=== PATIENT | female | born 1995 | race Caucasian/White ===

== ENCOUNTER 2017-05-02 21:20 | Emergency (ER) | payer OTHER ==
--- NOTE | 2017-05-02 22:32 | PDOC ---
History of Present Illness - General Chief Complaint: Nausea/Vomiting Stated Complaint: NAUSEA, VOMITING, ACHESS/P WISDOM TEETH EXTRACTION Time Seen by Provider: 05/02/17 21:35 - History of Present Illness Initial Comments: 05/03/17 01:10 The patient is a 21 year old female, who presents to the ED with complaints of nausea, vomiting, and body aches that began this evening. Earlier today, she was feeling queezy and then tried to eat some pizza and lo mein. Four hours later, she began vomiting multiple times. She reports 3-4 episodes of nonbloody/nonbilious emesis with no associated abd pain.The patient recently had her wisdom teeth removed 6 days ago and was sent home with prescription Tylenol #3 and amoxicillin which she has been taking intermittently for the last week with no symptoms until today. She also reports that shes been taking an over the counter cannabis oil supplement for her pain as well. Denies any jaw/tooth pain currently. She reports also getting her flu shot 2 days ago. Last BM yesterday was normal. She denies any fevers, chills, diarrhea, melena, hematemesis, cough, SOB, CP, or urinary symptoms. Past History - Past Medical History Allergies/Adverse Reactions: Allergies Allergy/AdvReac Type Severity Reaction Status Date / Time azithromycin [From Zithromax] Allergy Verified 05/02/17 23:05 Home Medications: Ambulatory Orders Acetaminophen W/ Codeine #3 [Tylenol # 3 -] 1 tab PO Q6H PRN 05/02/17 Amoxicillin - [Amoxicillin 875mg Tablet -] 875 mg PO BID 05/02/17 Ibuprofen 600 mg PO PRN PRN 05/02/17 Ondansetron [Zofran Odt -] 4 mg GT Q8H PRN #8 tab.rapdis 05/03/17 Review of Systems - Review of Systems Comments:: 05/03/17 01:10 GENERAL/CONSTITUTIONAL: Present: chills No fever. No weakness. HEAD, EYES, EARS, NOSE AND THROAT: No change in vision. No ear pain or discharge. No sore throat. GASTROINTESTINAL: Present: nausea, vomiting No diarrhea or constipation. GENITOURINARY: No dysuria, frequency, or change in urination. CARDIOVASCULAR: No chest pain or shortness of breath. RESPIRATORY: No cough, wheezing, or hemoptysis. MUSCULOSKELETAL: No joint or muscle swelling or pain. No neck or back pain. SKIN: No rash NEUROLOGIC: No headache, vertigo, loss of consciousness, or change in strength/ sensation. ENDOCRINE: No increased thirst. No abnormal weight change. HEMATOLOGIC/LYMPHATIC: No anemia, easy bleeding, or history of blood clots. ALLERGIC/IMMUNOLOGIC: No hives or skin allergy. *Physical Exam - Physical Exam Comments: 05/03/17 01:10 GENERAL: Awake, alert, and fully oriented, in no acute distress HEAD: No signs of trauma EYES: PERRLA, EOMI, sclera anicteric, conjunctiva clear ENT: Auricles normal inspection, hearing grossly normal, nares patent, oropharynx clear without exudates. Moist mucosa NECK: Normal ROM, supple, no lymphadenopathy, JVD, or masses LUNGS: Breath sounds equal, clear to auscultation bilaterally. No wheezes, and no crackles HEART: Regular rate and rhythm, normal S1 and S2, no murmurs, rubs or gallops ABDOMEN: Soft, nontender, normoactive bowel sounds. No guarding, no rebound. No masses EXTREMITIES: Normal range of motion, no edema. No clubbing or cyanosis. No cords, erythema, or tenderness BACK: No midline spinal tenderness in cervical/thoracic/lumbar region NEUROLOGICAL: Normal speech, cranial nerves intact, negative pronator drift, 5/ 5 strength in all 4 extremities, normal sensation to light touch in all 4 extremities, normal cerebellar exam, normal gait, normal reflexes and tone SKIN: Warm, Dry, normal turgor, no rashes or lesions noted. ED Treatment Course - LABORATORY CBC & Chemistry Diagram: 05/02/17 23:40 05/02/17 23:40 Medical Decision Making - Medical Decision Making 05/02/17 22:08 21-year-old female with no significant past medical history presents emergency Department with multiple episodes of nonbloody nonbilious emesis since this evening. Vitals unremarkable. Exam within normal limits with no abdominal tenderness. Differential includes but is not limited to gastroenteritis versus pancreatitis versus cholecystitis versus gastritis. Will obtain blood work, urine test, hydrate, give antibiotics and reassess. 05/03/17 00:40 CBC is unremarkable. Remainder of labs and urinalysis pending. Patient reports she feels much better after fluids and Zofran and has been tolerating by mouth while here in the emergency department. Will await remainder of labs and reassess. 05/03/17 01:22 Labs within normal limits. Urine test negative. Urinalysis negative for infection. Patient has been tolerating liquids in the emergency department for 3 hours. Rpt abd exam remains benign with no ttp. Feels much better and requests discharge home. I discussed the physical exam findings, ancillary test results and final diagnoses with the patient. I answered all of the patient's questions. The patient was satisfied with the care received and felt comfortable with the discharge plan and treatment plan. The patient will call their primary care physician within 24 hours to arrange follow-up and will return to the Emergency Department with any new, persistent or worsening symptoms. *DC/Admit/Observation/Transfer Diagnosis at time of Disposition: Vomiting, Gastroenteritis - Discharge Dispostion Disposition: HOME Condition at time of disposition: Stable Admit: No - Prescriptions Prescriptions: Ondansetron [Zofran Odt -] 4 mg GT Q8H PRN #8 tab.rapdis PRN Reason: Nausea - Referrals Referrals: Zahra Edmond MD [Primary Care Provider] - - Patient Instructions Printed Discharge Instructions: DI for Vomiting -- Adult Additional Instructions: Follow-up with your primary care doctor within 2-3 days. Take Zofran as needed for nausea. Drink plenty of fluids and stay hydrated. Return to the emergency department if you have any new, worsening or concerning symptoms. - Post Discharge Activity - Attestations Physician Attestion: 05/03/17 01:24 I, Dr. Nahomi Dean MD, attest that this document has been prepared under my direction and personally reviewed by me in its entirety. I further attest, that it accurately reflects all work, treatment, procedures and medical decision -making performed by me.
[2017-05-02] MEDS ORDERED: ONDANSETRON 4 MG/2 ML VIAL IVPUSH ONE (22:34)
[2017-05-02] MEDS ORDERED: SODIUM CHLORIDE 0.9% 500 ML INFUS.BAG IV ONE (22:34)
[2017-05-02 23:04] VITALS: BP 112/69; PULSE 65; TEMP 98.4; BMI 20.3
[2017-05-03 00:04] LABS: BASO % 0.2 % (0-2.0); EOS % 1.8 % (0-4.5); HEMATOCRIT 34.6 % (32.4-45.2); HEMOGLOBIN 11.2 GM/dL (10.7-15.3); LYMPH % 11.1 % (8-40); MCH 27.2 pg (25.7-33.7); MCHC 32.2 g/dl (32.0-36.0); MEAN CELL VOLUME 84.5 fl (80-96); MEAN PLT VOLUME 7.4 fl (7.5-11.1); MONO % 6.1 % (3.8-10.2); NEUT % 80.8 % (42.8-82.8); PLATELET COUNT 231 K/MM3 (134-434); RDW 14.2 % (11.6-15.6); WHITE BLOOD COUNT 9.7 K/mm3 (4.0-10.0)
[2017-05-03 00:39] LABS: ALBUMIN 3.4 g/dl (3.4-5.0); ANION GAP 12 (8-16); BILIRUBIN,TOTAL 0.3 mg/dL (0.2-1.0); BLOOD UREA NITROGEN 8 mg/dL (7-18); CALCIUM 8.5 mg/dL (8.5-10.1); CHLORIDE 107 mmol/L (98-107); CO2 23 mmol/L (21-32); CREATININE 0.6 mg/dL (0.55-1.02); GLUCOSE,RANDOM 74 mg/dL (74-106); LIPASE 115 U/L (73-393); POTASSIUM 3.6 mmol/L (3.5-5.1); SGOT/AST 24 U/L (15-37); SGPT/ALT 28 U/L (12-78); SODIUM 142 mmol/L (136-145); TOT PROT 6.2 g/dl (6.4-8.2)
[2017-05-03 00:40] LABS: ALK PHOS 67 U/L (45-117)
[2017-05-03 01:05] LABS: URINE APPEARANCE CLEAR; URINE BILIRUBIN NEGATIVE (NEGATIVE); URINE BLOOD 1+ (NEGATIVE); URINE COLOR STRAW; URINE GLUCOSE (UA) NEGATIVE (NEGATIVE); URINE KETONE 1+ (NEGATIVE); URINE LEUK ESTERASE NEGATIVE (NEGATIVE); URINE NITRITE NEGATIVE (NEGATIVE); URINE PROTEIN NEGATIVE (NEGATIVE); URINE UROBILINOGEN NEGATIVE mg/dL (0.2-1.0)
[2017-05-03 01:07] LABS: HCG,QUALITATIVE URINE NEGATIVE
[2017-05-03 01:10] LABS: EPI CELLS RARE /HPF (FEW); URINE MUCUS RARE
[2017-05-03 01:24] LABS: COCAINE, UR NEGATIVE ng/ml (CUTOFF=300); METHADONE, UR NEGATIVE ng/ml (CUTOFF=300); PHENCYCLIDINE,URINE NEGATIVE ng/ml (CUTOFF=25); URINE AMPHETAMINES NEGATIVE ng/ml (CUTOFF=500); URINE BARBITURATES NEGATIVE ng/ml (CUTOFF=200); URINE BENZODIAZEPINES POSITIVE ng/ml (CUTOFF=200)
[2017-05-03 01:25] LABS: OPIATES, URI POSITIVE ng/ml (CUTOFF=300)
== END 2017-05-03 01:34 | disposition home or self-care (01) ==
LOC: FER 21:20
PROC: 3E033GC Introduction of Other Therapeutic Substance into Peripheral Vein, Percutaneous Approach (ICD-10-PCS; principal; 2017-05-02)
PROC: 3E0337Z Introduction of Electrolytic and Water Balance Substance into Peripheral Vein, Percutaneous Approach (ICD-10-PCS; 2017-05-02)
DX: K52.9 Noninfective gastroenteritis and colitis, unspecified (principal); R11.10 Vomiting, unspecified
CPT/HCPCS: 36415; 80053; 80307; 81003; 81015; 83690; 84703; 85025; 87086; 87186; 99282-25

== ENCOUNTER 2019-10-19 11:25 | Emergency (ER) | payer OTHER ==
[2019-10-19 11:34] VITALS: BP 123/65; PULSE 91; TEMP 100.1; BMI 20.9
--- NOTE | 2019-10-19 11:44 | PDOC ---
Attending Attestation - Resident Resident Name: Wilfredo Odell - ED Attending Attestation I have performed the following: I have examined & evaluated the patient, The case was reviewed & discussed with the resident, I agree w/resident's findings & plan, Exceptions are as noted - HPI HPI: 24 yo F no significant PMH presents with nausea, diarrhea, crampy abdominal pain for the past 3 days. She presented to urgent care today, had abdominal ten derness, and was referred to the ED. Denies pain at present, but it has been intermittent. She states she was recently at a alliance party with friends, wore a mask "sometimes". - Physicial Exam PE: GENERAL: Awake, alert, and fully oriented, in no acute distress HEAD: No signs of trauma EYES: PERRLA, EOMI, sclera anicteric, conjunctiva clear ENT: Auricles normal inspection, hearing grossly normal, nares patent, oropharynx clear without exudates. Dry mucosa NECK: Normal ROM, supple, no lymphadenopathy, JVD, or masses LUNGS: Breath sounds equal, clear to auscultation bilaterally. No wheezes, and no crackles HEART: Regular rate and rhythm, normal S1 and S2, no murmurs, rubs or gallops ABDOMEN: Soft, nontender, normoactive bowel sounds. No guarding, no rebound. No masses EXTREMITIES: Normal range of motion, no edema. No clubbing or cyanosis. No cords, erythema, or tenderness NEUROLOGICAL: Cranial nerves II through XII grossly intact. Normal speech, n ormal gait. Motor and sensation intact SKIN: Warm, dry, normal turgor, no rashes or lesions noted. - Medical Decision Making 10/19/19 11:57 DDx includes COVID-19 in light of current pandemic and recent alliance party without consistently wearing a mask. She also may have viral gastroenteritis, although the duration is a bit long. Will send labs, give GI cocktail, reassess. Her abd is soft and nontender at present. 10/19/19 14:40 Labs show no significant abnormalities. Patient appears improved, has not had any pain during her ED visit. Abd remains soft and benign. Stable for DC home. Discharge - Discharge Information Problems reviewed: Yes Clinical Impression/Diagnosis: Nausea, Lower abdominal pain, Subjective fever Diarrhea Qualifiers: Diarrhea type: unspecified type Qualified Code(s): R19.7 - Diarrhea, unspecified Condition: Good Disposition: HOME - Additional Discharge Information Prescriptions: Ondansetron [Zofran Odt -] 4 mg SL TID PRN #10 od.tablet PRN Reason: Nausea / Vomiting - Follow up/Referral Referrals: Zahra Edmond MD [Primary Care Provider] - CallBack Reminder: COVID-19 - Patient Discharge Instructions Patient Printed Discharge Instructions: DI for Abdominal Pain-Adult, O ndansetron, [facility]Coronavirus Instructions, [facility] COVID-19 Isolation Protocol Additional Instructions: You were seen today for nausea, abdominal pain, and diarrhea. Your physical exam, as well as blood and urine tests did not show an acute life threat. Your symptoms may be something similar to a stomach virus (gastroenteritis) or could be symptoms of the COVID-19 virus. Please review the attached material for further advice on both of these conditions. Please continue to drink fluids (water, Gatorade, etc) to stay hydrated. Mix sugary drinks with water as the sugar can further dehydrate you. You can try and eat a small bland meal (crackers, etc) after you have stopped vomiting for 12 hours. I have sent a prescription for Zofran to your pharmacy. Take as directed on the package insert. Do not take more than the recommended dose. An informational leaflet about the medication is attached. Return to the emergency room if your vomiting becomes much worse and you are no longer able to keep fluids down, if you begin to feel dehydrated, if you develop a fever, pass out, become disoriented, begin vomiting blood, have bloody diarrhea, or you feel like you need additional emergency care. You can also see your primary care doctor if your symptoms do not improve. Print Language: CROATIAN - Post Discharge Activity Work/Back to School Note: Back to Work
[2019-10-19] MEDS ORDERED: FAMOTIDINE 20 MG/50 ML IVPB 20 MG/50 ML MG IVPB ONE ×2 (11:52→12:08)
[2019-10-19] MEDS ORDERED: LACTATED RINGERS SOLUTION 1000 ML INFUS.BAG IV ONE (11:52)
[2019-10-19] MEDS ORDERED: ONDANSETRON 4 MG/2 ML VIAL IVPUSH ONE (11:52)
--- NOTE | 2019-10-19 11:55 | PDOC ---
History of Present Illness - General Chief Complaint: Diarrhea Stated Complaint: NAUSEA & DIARRHEA Time Seen by Provider: 10/19/19 11:34 History Source: Patient Exam Limitations: No Limitations - History of Present Illness Initial Comments: HPI: 24 y/o female presenting to [facility] complaining of three days of subjective fever, chills, nausea w/o vomiting, intermittent abdominal pain, and watery non-bloody diarrhea. Symptoms started with fever and chills and progressed to GI symptoms. Pain initially started in the middle of the abdomen and migrated to the suprapubic region. Intermittent and crampy in nature. Attempted relief with Tylenol this morning that relieved subjective fever symptoms. Evaluated at urgent care earlier and referred to the ED for further evaluation. Denies dysuria, hematuria, increased urinary frequency, vaginal discharge, flank pain, back pain, chest pain, SOB, or cough. Denies h/o ovarian cysts. No recent change in medication doses. Sick Contacts: Unknown, went to a [employer] without wearing face covering Recent Travel: No Sexual Hx: - Single male partner in 6 months - Drug eluting IUD in place, does not have menstrual cycle - No h/o STDS - No known exposure to STDs Past History - Medical History Allergies/Adverse Reactions: Allergies Allergy/AdvReac Type Severity Reaction Status Date / Time azithromycin [From Zithromax] Allergy Verified 05/02/17 23:05 Home Medications: Ambulatory Orders Aripiprazole [Abilify] 5 mg PO DAILY 10/19/19 Ondansetron [Zofran Odt -] 4 mg SL TID PRN #10 od.tablet 10/19/19 Sertraline HCl [Zoloft -] 75 mg PO DAILY 10/19/19 COPD: No Psychiatric Problems: Yes (Anxiety and Depression) - Surgical History Abdominal Surgery: No - Reproductive History Is Patient Now?: No - Psycho-Social/Smoking History Smoking History: Never smoked - Substance Abuse Hx (Audit-C & DAST Scrn) How often the patient has a drink containing alcohol: 4 0r more times/wk Number of drinks the patient has on a typical day: 1 or 2 How often the patient has six or more drinks on one occasion: Never Score: In Men: 4 or > Positive; In Women: 3 or > Positive: 4 Screen Result (Pos requires Nsg. Audit-10AR): Positive In the last yr the pt used illegal drug/Rx for NonMed reason: No Score: Yes response is considered Positive: 0 Screen Result (Positive result requires Nsg. DAST-10): Negative Review of Systems - Review of Systems Able to Perform ROS?: Yes Comments:: 10 point review of systems completed. All systems negative except as noted above. *Physical Exam - Vital Signs Last Vital Signs Temp Pulse Resp BP Pulse Ox 100.1 F H 91 H 15 123/65 100 10/19/19 11:26 10/19/19 11:26 10/19/19 11:10/19/19 11:10/19/19 11:26 - Physical Exam Vital signs and nursing notes reviewed. Constitutional- Well-developed, well-nourished adult female in no acute distress or obvious discomfort. Nontoxic. Found semi-fowlers on hospital bed. Answered all questions appropriately and completely. Head- Normocephalic. No obvious external signs of trauma. Eyes- Sclerae white. Neck- Supple, trachea is midline. Cardiovascular / Chest- Regular rate and regular rhythm. No murmur, rubs, clicks, or gallops. Peripheral pulses- radial pulses full. No pretibial edema. Respiratory- Breathing unlabored. Speaking in multi-word responses without pausing. Equal chest rise and fall. Clear to auscultation bilaterally. No stridor, no wheezing, no rhonchi. Gastrointestinal- abdomen is soft, non-tender, non-distended. Pt able to transition from supine to high fowlers without assistance and no obvious discomfort. No hepatosplenomegaly. No pulsatile masses. No overlying skin lesions or obvious signs of trauma. Neuro- Alert and oriented x4. Moving all four extremities spontaneously. No facial asymmetry. No slurred speech. Skin- Warm, dry, and intact. - No R or L CVA tenderness. Psych- Affect- appropriate. Mood- normal. Speech was non-labored, non-p ressured. ED Treatment Course - LABORATORY CBC & Chemistry Diagram: 10/19/19 12:30 10/19/19 12:07 Medical Decision Making - Medical Decision Making 24 y/o female presenting with three days of subjective fever, nausea, intermittent middle to lower abdominal pain, and diarrhea. Afebrile orally but suspect would be febrile on rectal temp. Triage vitals unremarkable for hypot ension or tachycardia. Normoxic on room air. Physical exam as described above. DDx includes ectopic , pancreatitis, appendicitis, acute cystitis, gastroenteritis, COVID-19 infection. Ordered LR IVFB, Pepcid, and Zofran for symptom relief. Reviewed laboratory data. No clinically significant derangement noted. UA unremarkable for pyuria, nitrites, or leukocyte esterase. Low suspicion for acute cystitis. Urine culture pending at this time. UPreg negative. Pt reassessed. Reports feeling better. No further diarrhea or intense abdominal pain. Repeat abd exam revealed soft and nondistended abdomen without acute signs. Continue to suspect gastroenteritis vs COVID-19 infection. PCR pending. Call back request placed. Discussed physical exam findings and laboratory data with pt. Answered all questions. Provided return precautions. pt expressed verbal understanding and agreement with plan to discharge home with outpatient follow up. Provided copies of todays results. Prescribed PRN Zofran. Case discussed with ED Attending Dr. Sami Odell M.D., PGY3 Emergency Medicine Resident Discharge - Discharge Information Problems reviewed: Yes Clinical Impression/Diagnosis: Nausea, Lower abdominal pain, Subjective fever Diarrhea Qualifiers: Diarrhea type: unspecified type Qualified Code(s): R19.7 - Diarrhea, unspecified Condition: Good Disposition: HOME - Admission No - Additional Discharge Information Prescriptions: Ondansetron [Zofran Odt -] 4 mg SL TID PRN #10 od.tablet PRN Reason: Nausea / Vomiting - Follow up/Referral Referrals: Zahra Edmond MD [Primary Care Provider] - CallBack Reminder: COVID-19 - Patient Discharge Instructions Patient Printed Discharge Instructions: DI for Abdominal Pain-Adult, Ondansetron, [facility]Coronavirus Instructions, [facility] COVID-19 Isolation Protocol Additional Instructions: You were seen today for nausea, abdominal pain, and diarrhea. Your physical exam, as well as blood and urine tests did not show an acute life threat. Your symptoms may be something similar to a stomach virus (gastroenteritis) or could be symptoms of the COVID-19 virus. Please review the attached material for fur ther advice on both of these conditions. Please continue to drink fluids (water, Gatorade, etc) to stay hydrated. Mix sugary drinks with water as the sugar can further dehydrate you. You can try and eat a small bland meal (crackers, etc) after you have stopped vomiting for 12 hours. I have sent a prescription for Zofran to your pharmacy. Take as directed on the package insert. Do not take more than the recommended dose. An informational leaflet about the medication is attached. Return to the emergency room if your vomiting becomes much worse and you are no longer able to keep fluids down, if you begin to feel dehydrated, if you develop a fever, pass out, become disoriented, begin vomiting blood, have bloody diarrhea, or you feel like you need additional emergency care. You can also see your primary care doctor if your symptoms do not improve. Print Language: BRAZILIAN - Post Discharge Activity Work/Back to School Note: Back to Work
[2019-10-19] MEDS ORDERED: ONDANSETRON 4 MG/2 ML VIAL ONE (12:09)
[2019-10-19 12:42] LABS: BASO % 0.4 % (0-2.0); HEMOGLOBIN 13.6 GM/dl (10.7-15.3); LYMPH % 6.6 % (8-40); MCHC 32.4 g/dl (32.0-36.0); MEAN CELL VOLUME 89.5 fl (80-96); MEAN PLT VOLUME 7.8 fl (7.5-11.1); MONO % 7.8 % (3.8-10.2); NEUT % 85.2 % (42.8-82.8); PLATELET COUNT 296 K/MM3 (134-434); RDW 12.3 % (11.6-15.6); WHITE BLOOD COUNT 9.2 K/mm3 (4.0-10.8)
[2019-10-19 13:06] LABS: ALBUMIN 4.4 g/dl (3.4-5.0); BILIRUBIN,TOTAL 0.4 mg/dl (0.2-1); CALCIUM 9.3 mg/dl (8.5-10); CREATININE 0.7 mg/dl (0.55-1.3); POTASSIUM 3.5 mmol/L (3.5-5.1); TOT PROT 7.7 g/dl (6.4-8.2)
[2019-10-19 13:38] LABS: EPITHELIAL CELLS MODERATE /hpf
== END 2019-10-19 14:58 | disposition home or self-care (01) ==
LOC: FER 11:25
PROC: 3E033GC Introduction of Other Therapeutic Substance into Peripheral Vein, Percutaneous Approach (ICD-10-PCS; principal; 2019-10-19)
DX: R19.7 Diarrhea, unspecified (principal); R11.0 Nausea; R10.9 Unspecified abdominal pain
CPT/HCPCS: 36415; 80053; 81003; 81015; 83690; 84703; 85025; 87086; 99284-25; U0003